=== PATIENT | female | born 1985 ===

== ENCOUNTER 2022-10-07 15:40 | Inpatient (IN) | payer OTHER ==
[~2022-10-07] VITALS: Ht 152.4 cm; Wt 85.7 kg
[2022-10-11] MEDS ORDERED: PRENATAL TABLE1 EAC1 PO (11:43)
== END 2022-10-13 13:52 | disposition home or self-care (01) | DRG 807 ==
LOC: OB/GYN 10-11 10:13 → LDR 10-11 10:13 → OB/GYN 10-11 16:52
PROVIDERS: ADMIT Obstetrics & Gynecology Maternal & Fetal Medicine; ATTEND Obstetrics & Gynecology Maternal & Fetal Medicine
PROC: 10E0XZZ Delivery of Products of Conception, External Approach (ICD-10-PCS; principal; 2022-10-11)
PROC: 0UQG7ZZ Repair Vagina, Via Natural or Artificial Opening (ICD-10-PCS; 2022-10-11)
PROC: 4A1HXCZ Monitoring of Products of Conception, Cardiac Rate, External Approach (ICD-10-PCS; 2022-10-11)
DX: O71.4 Obstetric high vaginal laceration alone (principal); Z37.0 Single live birth; Z3A.39 39 weeks gestation of pregnancy; Z20.822 Contact with and (suspected) exposure to COVID-19